=== PATIENT | female | born 1985 | race Caucasian/White ===

== ENCOUNTER 2020-07-28 20:22 | Emergency (ER) | payer OTHER, SELFPAY ==
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
--- NOTE | ~2020-07-28 | XR_ITS ---
XR ankle RT min 3V 07/28/2020 21:05 INDICATION: Right ankle pain PROCEDURE: 4 views right ankle COMPARISON: No prior studies for comparison. FINDINGS: Fracture, dislocation or subluxation is not identified. Ankle mortise intact. The soft tiss ues appear within normal limits. No foreign bodies are identified. IMPRESSION: 1: NO ACUTE BONE OR JOINT ABNORMALITY IDENTIFIED. Reviewed, dictated and finalized at location A. HEAD ROLLER
--- NOTE | ~2020-07-28 | XR_ITS ---
XR tibia fibula LT 2V 07/28/2020 21:05 INDICATION: Left leg pain PROCEDURE: 2 views left tibia/fibula COMPARISON: No prior studies for comparison. FINDINGS: Fracture, dislocation or subluxation is not identified. The soft tissues appear within norm al limits. No foreign bodies are identified. IMPRESSION: 1: NO ACUTE BONE OR JOINT ABNORMALITY IDENTIFIED. Reviewed, dictated and finalized at location A. ARY CLERK
[2020-07-28 20:23] VITALS: BP 116/72; PULSE 93; RESP 18; TEMP 36.7; O2SAT 99
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
== END 2020-07-28 21:35 | disposition home or self-care (01) ==
PROVIDERS: Emergency Provider Emergency Medicine
DX: S97.82XA Crushing injury of left foot, initial encounter (principal); S97.81XA Crushing injury of right foot, initial encounter; V03.00XA Pedestrian on foot injured in collision with car, pick-up truck or van in nontraffic accident, initial encounter
CPT/HCPCS: 73590; 73610; 73630; 99284